=== PATIENT | female | born 1970 | race Asian ===

== ENCOUNTER → 2023-03-07 | Day surgery (SDC) | payer OTHER ==
[~2023-03-07] MED LIST: HYOSCYAMINE SULFATE 0.5 MG/ML INJ ONE; LACTATED RINGER'S 1,000 ML ONE; POVIDONE IODINE 0.05% 0.05 % ML PO ONE; PROPOFOL IV EMULSION 10 MG/ML 20 ML VIAL ONE
[2023-03-07 12:08] VITALS: TEMP 98.6
[2023-03-07 12:35] VITALS: BP 119/81; PULSE 81; RESP 17; O2SAT 99
== END | disposition home or self-care (01) ==
LOC: OR 08:33 → EDSEX 15:30
PROVIDERS: ATTEND Internal Medicine Gastroenterology
DX: Z12.11 Encounter for screening for malignant neoplasm of colon (principal); K29.50 Unspecified chronic gastritis without bleeding; K31.A15 Gastric intestinal metaplasia without dysplasia, involving multiple sites; K21.9 Gastro-esophageal reflux disease without esophagitis; K20.90 Esophagitis, unspecified without bleeding; K62.89 Other specified diseases of anus and rectum; K64.8 Other hemorrhoids; Z01.810 Encounter for preprocedural cardiovascular examination; Z86.19 Personal history of other infectious and parasitic diseases; Z80.0 Family history of malignant neoplasm of digestive organs
CPT/HCPCS: 43239; 45378; 81025; 93005; C9113; J1980; J2704; J7121